=== PATIENT | male | born 1965 | race Caucasian/White ===

== ENCOUNTER 2016-09-23 07:10 | Day surgery (SDC) | payer OTHER ==
--- NOTE | ~2016-09-23 | EGD ---
EGD REPORT [facility] [address] [address] NAME: FABRICE PARRA : [birth year] STATUS : REG [facility]#: [id number] AGE: 51 ADM/REG DATE : 09/23/16 MR#: [id number] REPORT SERV DATE: 09/23/16 DICTATED BY: KAYLA DOWNEY DATE: 09/23/16 REPORT STATUS : Draft TRANSCRIBED BY: [employer] DATE: 09/23/16 [facility] Patient Name: Fabrice Parra Date of : 1965 Attending MD: KAYLA DOWNEY MD Procedure Date No Time: 09/23/2016 Procedure: Upper GI endoscopy Indications: Follow-up of esophageal ulcer, Follow-up of acute duodenal ulcer Referring MD: JOHANA TRACEY Medicines: as per anesthesia Complications: No immediate complications. Procedure: Pre-Anesthesia Assessment: - ASA Grade Assessment: II - A patient with mild systemic disease. After obtaining informed consent, the endoscope was passed under direct vision. Throughout the procedure, the patient's blood pressure, pulse, and oxygen saturations were monitored continuously. The GIF [id number] was introduced through the mouth, and advanced to the third part of duodenum. The upper GI endoscopy was accomplished without difficulty. The patient tolerated the procedure. Findings: The examined esophagus was normal. The entire examined stomach was normal. The cardia and gastric fundus were normal on retroflexion. A mild post-ulcer deformity was found in the duodenal bulb. Localized mild inflammation characterized by erythema was found in the duodenal bulb. Impression: - Normal esophagus. - Normal stomach. - Duodenal deformity. - Duodenitis. Recommendation: - Continue present medications. Procedure Code(s): --- Professional --- 17935, Esophagogastroduodenoscopy, flexible, transoral; diagnostic, including collection of specimen(s) by brushing or washing, when performed (separate procedure) Diagnosis Code(s): --- Professional --- EGD REPORT [facility] [address] [place]. [address] NAME: FABRICE PARRA : [birth year] STATUS : REG [facility] PAT#: [id number] AGE: 51 ADM/REG DATE : 09/23/16 MR#: [id number] REPORT SERV DATE: 09/23/16 DICTATED BY: KAYLA DOWNEY DATE: 09/23/16 REPORT STATUS : Draft TRANSCRIBED BY: [employer] DATE: 09/23/16 K31.89, Other diseases of stomach and duodenum K29.80, Duodenitis without bleeding K22.10, Ulcer of esophagus without bleeding K26.3, Acute duodenal ulcer without hemorrhage or perforation CPT copyright 2013 [employer]. All rights reserved. The codes documented in this report are preliminary and upon food services director review may be revised to meet current compliance requirements. KAYLA DOWNEY MD 09/23/2016 9:32 AM This report has been signed electronically. Number of Addenda: 0 Note Initiated On: 09/23/2016 9:18 AM Scope Withdrawal Time 0 hours 0 minutes 0 seconds [address] [place] [address]
--- NOTE | ~2016-09-23 | EGD ---
EGD REPORT [facility] [address] [address] NAME: FABRICE PARRA : [birth year] STATUS : REG [facility]#: [id number] AGE: 51 ADM/REG DATE : 09/23/16 MR#: [id number] REPORT SERV DATE: 09/23/16 DICTATED BY: KAYLA DOWNEY DATE: 09/23/16 REPORT STATUS : Draft TRANSCRIBED BY: [employer] DATE: 09/23/16 [facility] Patient Name: Fabrice Parra Date of : 1965 Attending MD: KAYLA DOWNEY MD Procedure Date No Time: 09/23/2016 Procedure: Colonoscopy Indications: Abnormal CT of the GI tract Referring MD: JOHANA TRACEY Medicines: as per anesthesia Complications: No immediate complications. Procedure: Pre-Anesthesia Assessment: - ASA Grade Assessment: II - A patient with mild systemic disease. After I obtained informed consent, the scope was passed under direct vision. Throughout the procedure, the patient's blood pressure, pulse, and oxygen saturations were monitored continuously. The PCF [id number] was introduced through the anus and advanced to the cecum, identified by appendiceal orifice and ileocecal valve. The colonoscopy was performed without difficulty. The patient tolerated the procedure. The quality of the bowel preparation was adequate to identify polyps. Findings: The perianal and digital rectal examinations were normal. Internal hemorrhoids were found during endoscopy and were mild. Impression: - Internal hemorrhoids. Recommendation: - Repeat colonoscopy in 10 years for surveillance. Procedure Code(s): --- Professional --- 21829, Colonoscopy, flexible, proximal to splenic flexure; diagnostic, with or without collection of specimen(s) by brushing or washing, with or without colon decompression (separate procedure) Diagnosis Code(s): --- Professional --- K64.8, Other hemorrhoids R93.3, Abnormal findings on diagnostic imaging of other parts of digestive tract CPT copyright 2013 [employer]. All rights reserved. EGD REPORT [facility] [address] [address] NAME: FABRICE PARRA : [birth year] STATUS : REG [facility]#: [id number] AGE: 51 ADM/REG DATE : 09/23/16 MR#: [id number] REPORT SERV DATE: 09/23/16 DICTATED BY: KAYLA DOWNEY. DATE: 09/23/16 REPORT STATUS : Draft TRANSCRIBED BY: [employer] DATE: 09/23/16 The codes documented in this report are preliminary and upon therapeutic massage technician review may be revised to meet current compliance requirements. KAYLA DOWNEY MD 09/23/2016 9:47 AM This report has been signed electronically. Number of Addenda: 0 Note Initiated On: 09/23/2016 9:31 AM Scope Withdrawal Time 0 hours 6 minutes 0 seconds [address] [address]
[~2016-09-23 07:10] MED LIST: ACET500CAP PO; ADVIL PO; AVALID; BANOPHEN25 MG PO; BISR PR; CONSTULOSE PO; COZ50 PO; DSS PO; FERROUS SULF325 M1 PO; FLAG500TAB PO; FLORASTOR250 MG PO; GGDM5ML PO; HABIT14 TOP; KAOPECTATE262 MG/15 PO; LEVAQUIN750 MG PO; LOVENOX 40 MG/0.4 ML SC; MAALOX PO; METHOC500B PO; METHOC750B PO; MOMUD PO; PERCOCET 10/3251 TAB PO; PR25R PR; PROTONIX PO; SUCR PO; T PO; ZOFRAN ODT4 MG PO/SL
== END 2016-09-23 23:59 | disposition home health service (06) ==
LOC: DMU 07:10
PROVIDERS: Internal Medicine Gastroenterology
PROC: 0DJD8ZZ Inspection of Lower Intestinal Tract, Via Natural or Artificial Opening Endoscopic (ICD-10-PCS; principal; 2016-09-23 08:30)
PROC: 0DJ08ZZ Inspection of Upper Intestinal Tract, Via Natural or Artificial Opening Endoscopic (ICD-10-PCS; 2016-09-23 08:30)
DX: K64.8 Other hemorrhoids (principal); K26.3 Acute duodenal ulcer without hemorrhage or perforation; K29.80 Duodenitis without bleeding; K22.10 Ulcer of esophagus without bleeding; I10 Essential (primary) hypertension; G47.33 Obstructive sleep apnea (adult) (pediatric); K21.9 Gastro-esophageal reflux disease without esophagitis; M19.90 Unspecified osteoarthritis, unspecified site; Z99.81 Dependence on supplemental oxygen; Z88.5 Allergy status to narcotic agent; Z98.890 Other specified postprocedural states
CPT/HCPCS: J0290; J1580